=== PATIENT | female | born 1975 | race African-American/Black ===

== ENCOUNTER 2020-10-17 14:29 | Outpatient (CLI) | payer BC | END 2020-10-17 14:30 | disposition home or self-care (01) | LOC: CSHMAMMO 14:29 | PROVIDERS: ATTEND Nurse Practitioner Women's Health | DX: Z12.31 Encounter for screening mammogram for malignant neoplasm of breast (principal); Z80.3 Family history of malignant neoplasm of breast | CPT/HCPCS: 77067 ==

== ENCOUNTER 2021-10-18 09:24 | Emergency (ER) | payer BC, OTHER | END 2021-10-18 12:30 | disposition home or self-care (01) | LOC: CSHERS 09:24 | DX: H10.9 Unspecified conjunctivitis (principal) | CPT/HCPCS: 99282 ==

== ENCOUNTER 2022-11-26 10:50 | Emergency (ER) | payer OTHER ==
[2022-11-26 12:23] LABS: Bilirubin Neg (Negative); Blood, Urine 25 (Negative); Glucose, Urine (Dipstick) Normal (Negative); Ketone, Urine Negative (Negative); Leukocyte Negative (Negative); Nitrite Negative (Negative); Protein, Urine (Dipstick) 15 mg/dl (Neg-Trace); Specific Gravity, Urine 1.025 (1.005-1.030); Urobilinogen Normal mg/dL (Less than 2)
[2022-11-26 12:24] LABS: Clarity Clear (Clear); Pregnancy Test - Urine (BHCG) Negative (Negative); Pregu Control Background? CLEAR/WHITE (CLR/WHITE); Pregu Control Bar Appear? YES (CONTROL BAR); Specific Gravity 1.025 (1.002-1.036)
[2022-11-26 12:27] LABS: Bacteria/HPF None Seen HPF (None Seen); CAUTI Indications for Culture Pelvic or flank pain; RBC/HPF None Seen HPF (0-3); Squamous Epithelial 0-3 HPF (0-3); WBC/HPF None Seen HPF (0-3)
[2022-11-26 12:29] LABS: Urine Culture Reflex No No
[2022-11-26] MEDS ORDERED: Ketorolac Tromethamine 30 MG/ML VIAL ONE (12:46)
[2022-11-26] MEDS ORDERED: Lidocaine/Transparent Dressing 1 EACH KIT ONE (12:47)
== END 2022-11-26 13:52 | disposition home or self-care (01) ==
LOC: CSHERS 10:50
DX: M54.50 Low back pain, unspecified (principal)
CPT/HCPCS: 72100; 81001; 81025; 96372; J1885

== ENCOUNTER 2023-03-01 20:06 | Emergency (ER) | payer OTHER, SELFPAY ==
[2023-03-01] MEDS ORDERED: Ketorolac Tromethamine 30 MG (1 mL) VIAL ONE (20:57)
[2023-03-01] MEDS ORDERED: Cyclobenzaprine 10 MG TAB ONE (20:57)
== END 2023-03-01 22:11 | disposition home or self-care (01) ==
LOC: CSHERS 20:06
DX: M54.50 Low back pain, unspecified (principal); M54.2 Cervicalgia; V89.2XXA Person injured in unspecified motor-vehicle accident, traffic, initial encounter
CPT/HCPCS: 70450; 72125; 72131; 96372; J1885

== ENCOUNTER 2023-03-15 10:43 | Emergency (ER) | payer SELFPAY | END 2023-03-15 13:06 | disposition home or self-care (01) | LOC: CSHERS 10:43 | DX: S63.636A Sprain of interphalangeal joint of right little finger, initial encounter (principal); Z55.6 Problems related to health literacy; V49.9XXA Car occupant (driver) (passenger) injured in unspecified traffic accident, initial encounter ==

== ENCOUNTER 2024-02-29 12:26 | Emergency (ER) | payer SELFPAY ==
[2024-02-29] MEDS ORDERED: Ketorolac Tromethamine 30 MG (1 mL) VIAL ONE ×2 (14:05→14:06)
[2024-02-29] MEDS ORDERED: methylPREDNISolone Sod Succ/PF 125 MG/2 ML VIAL ONE (14:05)
== END 2024-02-29 14:14 | disposition home or self-care (01) ==
LOC: CSHERS 12:26
DX: S39.012A Strain of muscle, fascia and tendon of lower back, initial encounter (principal); X50.0XXA Overexertion from strenuous movement or load, initial encounter
CPT/HCPCS: 96372; 99283; J1885; J2919

== ENCOUNTER 2024-09-07 17:47 | Emergency (ER) | payer SELFPAY ==
[2024-09-07] MEDS ORDERED: Boostrix 0.5 ML (Tdap) VIAL (>/=7 yrs of age) ONE (18:18)
== END 2024-09-07 20:23 | disposition home or self-care (01) ==
LOC: CSHERS 17:47
DX: S61.421A Laceration with foreign body of right hand, initial encounter (principal); S81.812A Laceration without foreign body, left lower leg, initial encounter; S81.811A Laceration without foreign body, right lower leg, initial encounter; Z23 Encounter for immunization; W25.XXXA Contact with sharp glass, initial encounter; W45.8XXA Other foreign body or object entering through skin, initial encounter; Y93.89 Activity, other specified
CPT/HCPCS: 90471; 90715